=== PATIENT | female | born 1990 | race Two or more races ===

== ENCOUNTER 2022-08-22 17:02 | Emergency (ER) | payer SELFPAY ==
[2022-08-22 17:25] VITALS: BP 100/61; PULSE 148; RESP 20; TEMP 37.9; O2SAT 98; BMI 31.9
[2022-08-22 17:28] VITALS: TEMP 37.9
[2022-08-22 18:13] LABS: PCR FLU A Negative PCR FLU A (Negative); PCR FLU B Negative PCR FLU B (Negative); PCR RSV Negative PCR RSV (Negative)
--- NOTE | 2022-08-22 18:32 | ED_ITS ---
HPI - General Adult General Time Seen by Provider: 18:33 Date Seen: 08/22/22 Chief complaint: Fever Stated complaint: Fever,Pain in Bones,Breathing Trouble Time Seen by Provider: 08/22/22 17:56 Source: patient Mode of arrival: ambulatory Limitations: no limitations History of Present Illness HPI narrative: Patient is a 31-year-old female who has developed fever today body aches coryza low-grade fever. States she ?feels terrible. Has a dry cough. No neck stiffness, no chronic health issues that her significant. She denies shortness of breath, denies chest pain, does have body aches and chills however as mention, no dysuria frequency no marked sore throat. No skin rashes noted Related Data Home Medications Medication Instructions Recorded Confirmed No Known Home Medications 08/22/22 08/22/22 Allergies Allergy/AdvReac Type Severity Reaction Status Date / Time No Known Drug Allergies Allergy Verified 08/22/22 17:25 Review of Systems Status of ROS: Reports: 6 or more systems reviewed and unremarkable except as noted in History and below [facility] Medical History No significant past medical history Social History Smoking Status: Never smoker Do you use any of these nicotine containing products: None How often do you have a drink containing alcohol: never AUDIT-C Alcohol total score: 0 Non-prescribed substance use: denies use Exam Narrative: Exam Narrative: Objective: Patient has mild temperature Appears in mild distress, noncyanotic, alert orient x3 HEENT is unremarkable Neck is supple Chest is clear Abdomen benign soft Extremities are no edema neurologic nonfocal Const: Vital Signs, click to edit/add: Vital Signs - 24 hr 08/22/22 17:25 08/22/22 17:28 08/22/22 18:38 Temperature 100.3 F H 100.3 F H 100.0 F H Pulse Rate [Pulse Oximeter] 148 H Respiratory Rate 20 Blood Pressure [Ri ght Upper Arm] 100/61 Pulse Oximetry 98 Oxygen Delivery Me thod Room Air Course Vital Signs Vital signs: Initial Vital Signs Temperature 100.3 F H 08/22/22 17:25 Temperature Source Temporal Artery Scan 08/22/22 17:25 Pulse Rate 148 H 08/22/22 17:25 Respiratory Rate 20 08/22/22 17:25 Blood Pressure 100/61 08/22/22 17:25 Blood Pressure Mean 74 08/22/22 17:25 Pulse Oximetry 98 08/22/22 17:25 Oxygen Delivery Method 08/22/22 17:25 Vital Signs Temperature 100.3 F H 08/22/22 17:25 Pulse Rate 148 H 08/22/22 17:25 Respiratory Rate 20 08/22/22 17:25 Blood Pressure 100/61 08/22/22 17:25 Pulse Oximetry 98 08/22/22 17:25 Oxygen Delivery Method 08/22/22 17:25 Temperature 100.0 F H 08/22/22 18:38 Pulse Rate 148 H 08/22/22 17:25 Respiratory Rate 20 08/22/22 17:25 Blood Pressure 100/61 08/22/22 17:25 Pulse Oximetry 98 08/22/22 17:25 Oxygen Delivery Method 08/22/22 17:25 Medical Decision Making [facility] Narrative Medical decision making narrative: Patient has a acute viral syndrome presentation, likely influenza a or B. patient will get influenza/COVID/RSV testing done. Will give her ibuprofen and Tylenol, will await her testing results. Addendum: The patient is negative for triple swab, likely has an influenza like illness or influenza that just was a false negative test. Would treat with fluids Advil and Tylenol, time observation off work for couple of days recheck primary care in 48 hours as needed. Lab Data Labs: Lab Results 08/22/22 Range/Units 16:48 SARS-CoV-2 (PCR) Negative SARS-CoV-2 (Negative) Influenza Type A (PCR) Negative PCR FLU A (Negative) Influenza Type B (PCR) Negative PCR FLU B (Negative) RSV (PCR) Negative PCR RSV (Negative) Discharge Plan Discharge Clinical Impression: Acute viral syndrome Patient Disposition: Home, Self-Care Condition: Stable Additional Instructions: rest, light activity, fluids, Tylenol Advil as needed every 4-6 hours, update regular physician the next couple of days, return to ED sooner worsening concerns or not improving, recommend off work for the next couple of days Activity Level: Light activity Discharge Diet: Regular Prescriptions: No Action No Known Home Medications Stand Alone Forms: [employer] Info Instructions
[2022-08-22 18:35] LABS: SARS PCR* Negative SARS-CoV-2 (Negative)
[2022-08-22 18:38] VITALS: TEMP 37.8
[2022-08-22] MEDS: ACETAMINOPHEN 500 MG TABLET 1000 MG PO (18:38)
[2022-08-22] MEDS: IBUPROFEN 400 MG TABLET 800 MG PO (18:38)
== END 2022-08-22 19:08 | disposition home or self-care (01) ==
LOC: ED 18:49
PROVIDERS: Emergency Provider Family Medicine
DX: R50.9 Fever, unspecified (principal); R05.9 Cough, unspecified; B34.9 Viral infection, unspecified
CPT/HCPCS: 87502; 87634; 87635; 99283; A9270

== ENCOUNTER 2022-11-30 14:02 | Outpatient (CLI) | payer OTHER, SELFPAY ==
[2022-11-30 19:09] LABS: Chlamydia DNA Amplified* NOT DETECTED (No Detected); GC DNA Amplified* NOT DETECTED (No Detected)
== END 2022-11-30 14:03 | disposition home or self-care (01) ==
PROVIDERS: Visit Provider Physician Assistant
DX: N89.8 Other specified noninflammatory disorders of vagina (principal)
CPT/HCPCS: 0353U

== ENCOUNTER 2022-12-11 08:45 | Outpatient (CLI) | payer OTHER, SELFPAY | END 2022-12-11 08:46 | disposition home or self-care (01) | LOC: NFLDREF 23:51 | PROVIDERS: Visit Provider Physician Assistant | DX: N92.0 Excessive and frequent menstruation with regular cycle (principal); Z13.6 Encounter for screening for cardiovascular disorders; Z13.1 Encounter for screening for diabetes mellitus | CPT/HCPCS: 80061; 82947; 84443 ==

== ENCOUNTER 2022-12-11 08:49 | Outpatient (CLI) | payer OTHER, SELFPAY ==
--- NOTE | 2022-12-11 08:45 | CRLHL7_ITS ---
For Patients: As a result of the Century Cures Act, medical imaging exams and procedure reports are released immediately into your electronic medical record. You may view this report before your referring provider. If you have questions, please contact your health care provider. INDICATION: Menorrhagia, mild llq pain COMPARISON: none TECHNIQUE: 2D perez scale and color Doppler images were acquired of the pelvis using a transabdominal and transvaginal approach. FINDINGS: Sonographic images demonstrate a normal size and smooth outer contour of the uterus. Uterus measures 8.5 cm in length by 4.5 cm in AP diameter by 5.1 cm in transverse dimension. The myometrium has a normal uniform echotexture. The endometrial lining appears normal and measures 9 mm in composite thickness. The right ovary measures 3.0 x 1.3 x 1.7 cm in size and the left ovary measures 3.3 x 2.2 x 2.6 cm. The ovaries demonstrate normal arterial and venous blood flow on color Doppler analysis. There are no suspicious fluid collections within the cul-de-sac. IMPRESSION: Normal pelvic ultrasound. Dictated by Niranjan Marmolejo MD @ 12/11/2022 10:51:57 AM (Electronically Signed)
== END 2022-12-11 08:50 | disposition home or self-care (01) ==
LOC: US 08:50
PROVIDERS: Visit Provider Physician Assistant
DX: N92.0 Excessive and frequent menstruation with regular cycle (principal)
CPT/HCPCS: 76830; 76856; T1013

== ENCOUNTER 2023-12-03 12:01 | Emergency (ER) | payer OTHER, SELFPAY ==
[2023-12-03 12:05] VITALS: BP 115/77; PULSE 69; RESP 16; TEMP 36.4; O2SAT 99; BMI 28.0
--- NOTE | 2023-12-03 12:25 | ED.GENADULT ---
HPI - General Adult General Chief complaint: Chest Pain Stated complaint: Chest pain Time Seen by Provider: 12/03/23 12:02 History of Present Illness HPI narrative: Pt reports she has had L-sided chest and back pain for 2-3 weeks. Reports pain is worse when breathing, feels as if something is poking me. Reports some SOB, states unable to take a deep breath. Has taken Tylenol at home with no relief . Rates pain . 33-year-old woman presenting to the emergency department with concern of left sided chest/back pain over the last couple of weeks. Pain is also pleuritic. Feels like something is poking her. She is short of breath with this related discomfort. She can't take a deep breath. Tylenol has not been helpful. Doesn't sound as though has tried ibuprofen. No trauma noted. No history of coagulopathy and no leg pain or swelling. No dysuria or hematuria. 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 Related Data Home Medications Medication Instructions Recorded Confirmed No Known Home Medications 08/22/22 03/07/23 Allergies Allergy/AdvReac Type Severity Reaction Status Date / Time shellfish derived Allergy Intermediate Diarrhea Verified 03/07/23 14:25 iodine Allergy Unknown Unknown Verified 03/07/23 14:25 Review of Systems Status of ROS: Reports: 6 or more systems reviewed and unremarkable except as noted in History and below [facility] Medical History History of hepatitis ?Z86.19 - Personal history of other infectious and parasitic diseases (ICD-10) Migraines ?G43.909 - Migraine, unspecified, not intractable, without status migrainosus (ICD-10) History of miscarriage ?Z87.59 - Personal history of other complications of , childbirth and the puerperium (ICD-10) History of abnormal cervical Papanicolaou smear (2016) ?Z87.42 - Personal history of other diseases of the female genital tract (ICD-10) Gastroesophageal reflux disease ?K21.9 - Gastro-esophageal reflux disease without esophagitis (ICD-10) Surgical History History of D&C ?Z98.890 - Other specified postprocedural states (ICD-10) History of tubal ligation (02/19/20) ?Z98.51 - Tubal ligation status (ICD-10) History of vaginal delivery History of colposcopy (2015) ?Z98.890 - Other specified postprocedural states (ICD-10) Family History Maternal Grandmother Diabetes High cholesterol Paternal Grandmother Diabetes High cholesterol Social History Narrative: Homemaker, 4 children. Non-Yemeni speaking. . Nonsmoker. Smoking Status: Never smoker Do you use any of these nicotine containing products: None How often do you have a drink containing alcohol: never AUDIT-C Alcohol total score: 0 Non-prescribed substance use: denies use Little interest or pleasure in doing things: several days Feeling down, depressed, or hopeless: not at all service: No Exam Narrative: Exam Narrative: Appears to be uncomfortable. Skin is warm and dry. Extremities without edema. Negative Homen?s. Breathing as if uncomfortable. Hand at left mid chest. Abdomen sort and nontender. She is sore to palpation over the left side chest ribs/deep upper left chest musculature. No bruise, erythema, rash, otherwise. Lungs are clear. Lung sounds throughout and no supraclavicular crepitus. pain with deep inspiration. Heart in regular rate and rhythm. Const: Vital Signs, click to edit/add: Vital Signs - 24 hr 12/03/23 12:05 Temperature 97.5 F L Pulse Rate [Pulse Oximeter] 69 Respiratory Rate 16 Blood Pressure [Ri ght Upper Arm] 115/77 Pulse Oximetry 99 Oxygen Delivery Me thod Room Air Documenting provider has reviewed patient's vital signs: yes Course Vital Signs Vital signs: Initial Vital Signs Temperature 97.5 F L 12/03/23 12:05 Temperature Source Oral 12/03/23 12:05 Pulse Rate 69 12/03/23 12:05 Respiratory Rate 16 12/03/23 12:05 Blood Pressure 115/77 12/03/23 12:05 Blood Pressure Mean 89 12/03/23 12:05 Blood Pressure Position Sitting 12/03/23 12:05 Pulse Oximetry 99 12/03/23 12:05 Oxygen Delivery Method Room Air 12/03/23 12:05 Vital Signs Temperature 97.5 F L 12/03/23 12:05 Pulse Rate 69 12/03/23 12:05 Respiratory Rate 16 12/03/23 12:05 Blood Pressure 115/77 12/03/23 12:05 Pulse Oximetry 99 12/03/23 12:05 Oxygen Delivery Method Room Air 12/03/23 12:05 Temperature 97.5 F L 12/03/23 12:05 Pulse Rate 69 12/03/23 12:05 Respiratory Rate 16 12/03/23 12:05 Blood Pressure 115/77 12/03/23 12:05 Pulse Oximetry 99 12/03/23 12:05 Oxygen Delivery Method Room Air 12/03/23 12:05 Medications Administered Medications: Discontinued Medications Generic Name Dose Route Start Last Admin Trade Name Freq PRN Reason Stop Dose Admin Lidocaine 1 patch 12/03/23 14:04 12/03/23 14:18 Lidocaine 5% Patch TRANSDERMA 12/03/23 14:05 1 patch ONCE ONE Administration Protocol Medical Decision Making MDM Narrative Medical decision making narrative: Due to the degree of discomfort I would do some imaging. Would do basic chest x-ray pending results of labs. Is rather low with pre-test probability with regard to wells criteria. Pulmonary embolus otherwise would be in differential. Pneumonia's possibility though. Hasn't had infectious prodrome otherwise. No cough. possible occult rib fracture or other lesion. Ureteral stone? Less likely. Pain is reproducible in the ribs/side and at a minimum I would think costochondritis. Chest xray reviewed by me is without pneumothorax or bony abn/lesion or pneumonia. Procedure(s): XR chest 1V portable Accession Number(s): [id number] cc: Provider,Not a Local; Niranjan uLis M.D.~ Patient: ROSIE CHILDERS Facility:?[facility] Patient ID:?[id number] Site Patient ID:?[id number]. Site :?1990 Study:?XRay-Chest 1V-12/03/2023 12:58:02 PM Ordering Physician:?DR. LUIS Final Report: Indication: Chest pain Technique: Chest 1 view Comparison: None Findings/Impression: Cardiovascular and mediastinum: Heart size and vasculature are normal in caliber and appearance. Lungs and pleural space: Lungs are clear. No sign of infiltrate or mass. No sign of pleural effusion. No pneumothorax. Bones and soft tissues: Densities within the right upper quadrant, possible recent enteric contrast. labs are reassuring. we did discuss further imaging though I am reassured by reproducibility. mutually agreed to defer. lidocaine patch supplied. see patient discharge plan for further discussion Lab Data Lab results reviewed: Yes I reviewed the patient's lab results Labs: Lab Results 12/03/23 12/03/23 Range/Units 12:47 13:00 WBC 6.84 (4.50-11.00) K/uL RBC 4.17 (4.00-5.20) m/uL Hgb 12.5 (12.0-16.0) gm/dL Hct 36.2 (33.0-51.0) % MCV 87 (80-100) fL MCH 30 (26-34) pg MCHC 35 (32-36) gm/dL RDW Coeff of Craig 12.1 (11.5-15.5) % Plt Count 242 (140-440) K/uL Neut % (Auto) 58.2 (42.0-72.0) % Lymph % (Auto) 33.0 (20-44) % [place] % (Auto) 5.7 (0.0-11.0) % Eos % (Auto) 2.6 (0.0-7.0) % Baso % (Auto) 0.4 (0.0-3.0) % Neut # (Auto) 3.97 (1.7-7.0) K/uL Lymph # (Auto) 2.26 (0.90-2.90) K/uL [place] # (Auto) 0.40 (0.00-0.90) K/UL Eos # (Auto) 0.18 (0.00-0.50) K/uL Baso # (Auto) 0.03 (0.00-0.30) K/uL Abs Immat Gran (auto) 0.01 (0.00-0.30) K/uL Imm/Tot Granulo (auto) 0.1 % D-Dimer Quant (PE/DVT) < 0.27 (0.00-0.50) ug/ml Sodium 137 (135-149) mmol/L Potassium 4.0 (3.6-5.1) mmol/L Chloride 106 (96-114) mmol/L Carbon Dioxide 29 (20-32) mmol/L Anion Gap 2 L (7-15) mEq/L BUN 10 (5-24) mg/dL Creatinine 0.5 (0.5-1.5) mg/dL Estimated Creat Clear 131.15 Estimated GFR 126 ml/min Glucose 93 (60-115) mg/dL Calcium 8.6 (8.4-10.6) mg/dL C-Reactive Protein < 0.5 L (0.5-1.0) mg/dL POC Troponin I 0.00 L (0.01-0.04) ng/ml ECG Data Attestation: I personally reviewed and interpreted this ECG as follows: (Normal sinus rhythm at a rate of 64. No ischemic changes or strain pattern) Discharge Plan Discharge Clinical Impression: Chest wall pain Patient Disposition: Home, Self-Care Condition: Stable Additional Instructions: I see no evidence of heart attack or blood clot or a pneumonia or cancer per your concern. Stay well-hydrated. See handout for stretches that might be helpful for you particularly considering your work. Can do these daily or couple times a day going forward. I think it might be a good idea to avoid working above your shoulders over the next week. You might try placing lidocaine patches if this one seems to be helpful. They are available for purchase [id number]. There are topical ibuprofen like creams available as well. Regardless I would recommend taking 600 mg of ibuprofen 3 times daily over the next 5 days or alternatively you might take 375-500 mg of naproxen 2 times daily over the next 5 days as well. Hopefully this can settle down the inflammation that appears to be present in your chest. No veo evidencia de ataque card?aco o co?gulo de abraham o neumon?a o c?ncer seg?n bowles preocupaci?n. Mantente trisha hidratado. Consulte el folleto para conocer los estiramientos que podr?an ser ?tiles para usted, especialmente teniendo en cuenta bowles trabajo. Puede hacer esto diariamente o un par de veces al d?a en el futuro. Creo que podr?a ser jacqueline buena idea evitar trabajar por encima de los hombros kathy la pr?xima semana. Puede intentar colocar parches de lidoca?na si ruperto parece ser ?til. Est?n disponibles para bowles compra sin receta. Tambi?n hay cremas t?picas similares al ibuprofeno. De todos modos, recomendar?a dana 600 mg de ibuprofeno 3 veces al d?a kathy los pr?ximos 5 d?as o, alternativamente, tambi?n podr?a dana 375 a 500 mg de naproxeno 2 veces al d?a kathy los pr?ximos 5 d?as. Con suerte, esto puede calmar la inflamaci?n que parece estar presente en el pecho. Prescriptions: No Action No Known Home Medications Follow Up/Referrals: Provider,Not a Local [Primary Care Provider] - Stand Alone Forms: [employer] Info Instructions
--- NOTE | 2023-12-03 12:46 | XR_ITS ---
Patient: ROSIE CHILDERS Facility:?[facility] Patient ID:?[id number] Site Patient ID:?[id number]. Site :?1990 Study:?XRay-Chest 1V-12/03/2023 12:58:02 PM Ordering Physician:?DR. OBREGON Final Report: Indication: Chest pain Technique: Chest 1 view Comparison: None Findings/Impression: Cardiovascular and mediastinum: Heart size and vasculature are normal in caliber and appearance. Lungs and pleural space: Lungs are clear. No sign of infiltrate or mass. No sign of pleural effusion. No pneumothorax. Bones and soft tissues: Densities within the right upper quadrant, possible recent enteric contrast. Dictated by Felipe Clement MD @ 12/03/2023 1:29:32 PM Signed by:?Felipe Clement MD @12/03/2023 1:29:32 PM (Electronic Signature)
[2023-12-03 13:11] LABS: Basophils Absolute Auto 0.03 K/uL (0.00-0.30); Basophils Percent Auto 0.4 % (0.0-3.0); Eosinophils Absolute Auto 0.18 K/uL (0.00-0.50); Eosinophils Percent Auto 2.6 % (0.0-7.0); Hematocrit 36.2 % (33.0-51.0); Hemoglobin* 12.5 gm/dL (12.0-16.0); Immature Granulocytes Abs Auto 0.01 K/uL (0.00-0.30); Immature Granulocytes Pct Auto 0.1 %; Lymphocytes Absolute Auto 2.26 K/uL (0.90-2.90); Mean Corpuscular HGB Conc 35 gm/dL (32-36); Mean Corpuscular Hemoglobin 30 pg (26-34); Mean Corpuscular Volume 87 fL (80-100); Monocytes Percent Auto 5.7 % (0.0-11.0); Neutrophils Absolute Auto 3.97 K/uL (1.7-7.0); Neutrophils Percent Auto 58.2 % (42.0-72.0); Platelet Count* 242 K/uL (140-440); RDW Coefficient of Variation % 12.1 % (11.5-15.5); Red Blood Count 4.17 m/uL (4.00-5.20); White Blood Count* 6.84 K/uL (4.50-11.00)
[2023-12-03 13:19] LABS: Chloride* 106 mmol/L (96-114)
[2023-12-03 13:20] LABS: Slide Review Reflex No; Sodium* 137 mmol/L (135-149)
[2023-12-03 13:22] LABS: Creatinine* 0.5 mg/dL (0.5-1.5); Est. Creatinine Clearance* 131.15; Estimated Glomerular Filt Rate 126 ml/min
[2023-12-03 13:23] LABS: Anion Gap 2 mEq/L (7-15); Blood Urea Nitrogen* 10 mg/dL (5-24); Carbon Dioxide* 29 mmol/L (20-32); Glucose* 93 mg/dL (60-115)
[2023-12-03 13:24] LABS: Calcium* 8.6 mg/dL (8.4-10.6)
[2023-12-03 13:28] LABS: D Dimer Quantitative* < 0.27 ug/ml (0.00-0.50)
[2023-12-03 13:34] LABS: C Reactive Protein* < 0.5 mg/dL (0.5-1.0)
[2023-12-03] MEDS: LIDOCAINE 5% PATCH 1 PATCH TRANSDERMA (14:18)
== END 2023-12-03 14:21 | disposition home or self-care (01) ==
PROVIDERS: Emergency Provider Family Medicine
DX: R07.89 Other chest pain (principal)
CPT/HCPCS: 36415; 71045; 80048; 84484; 85025; 85379; 86140; 99284; A9270

== ENCOUNTER 2025-03-25 14:57 | Emergency (ER) | payer OTHER, SELFPAY ==
--- OUTSIDE RECORDS SUMMARY | 2025-03-25 15:00 | XMS_ITS | Clinical Summary ---
Author Organization [employer] [facility] Address [address] [place] [id number] Care Team Providers Care Medical Support Specialist Name Role Phone Pcp, No Primary Care Provider Unavailabl e Allergies No known active allergies Medications Breast Pump - PurchaseIndication s:Nursing difficulty (HC) For home use. Gestation age at delivery: 38 weeks. 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 Length of need: 1 year 1 unit 0 6 Active ethinyl estradiol-norelges trom (ORTHO EVRA) 150-35 mcg/24 hr patchIndications:E ncounter for initial prescription of transdermal patch hormonal contraceptive device Apply 1 Patch on dry, clean, hairless skin once weekly. 12 Patch 3 6 Active Active Problems Problem Noted Date Diagnosed Date Cervical high risk HPV (human papillomavirus) te st positive 01/17/2016 Overview (01/31/2016): 01/17/2016 - Colposcopy Advised Normal in multigravida 03/31/2015 Overview (10/31/2015): Blood Type A+ It's a girl! Herpes diagnosed this , started on acyclovir at 36 weeks. ASCUS with positive high risk HPV 08/21/2013 ASCUS with positive high risk HPV 08/09/2013 Overview (09/04/2013): repeat pap ASCUS with positive high risk HPV Overview (04/28/2015): colposcopy recommended Resolved Problems Problem Noted Date Diagnosed Date Resolved Date IUD (intrauterine device) in place 01/03/2015 01/17/2015 Overview (01/03/2015): paraguard Supervision of other normal 07/28/2013 07/06/2014 Overview (02/12/2014): It's a girl! Close spacing Tdap 12/14/2013 HEMOGLOBIN (g/dL) Date Value 02/09/2014 12.8 GBS Negative Supervision of other normal 07/22/2012 04/24/2013 Overview (12/15/2012): It's a girl! TDaP given 12/15/2012 Immunizations Immunization Administration Dates Next Due Influenza, IIV3 (Age >=3 years) 07/03/2013,08/12 Influenza, IIV4 06/15/2016,06/21/2015 Tdap 2015,12/14/2013,12/15/2012 Family History Medical History Relation Name Comments Good Health Father Good Health Mother Relation Name Status Comments Father Mother Social History Tobacco Use Types Packs/Day Years Used Date Smoking Tobacco: Never Smokeless Tobacco: Never Tobacco Cessation:Counseling Given: Yes Alcohol Use Standard Drinks/Week Comments No 0 (1 standard drink = 0.6 oz pur e alcohol) Comments No Sex and Gender Information Value Date Recorded Sex Assigned at Not on file 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 Please review and update details. 014 Term 39w 0d 2.92 kg (6 lb 7 oz) F Vag None N Living Complications:None Last Filed Vital Signs Vital Sign Reading Time Taken Comments Blood Pressure 103/70 07/09/2016 11:32 AM CDT Pulse 88 07/09/2016 11:32 AM CDT Temperature 36.4 C (97.5 F) 02/10/2016 10:14 AM CDT Respiratory Rate 20 05/12/2015 2:31 PM CDT Oxygen Saturation 99% 07/09/2016 11:32 AM CDT Inhaled Oxygen Concentration - - Weight 70.6 kg (155 lb 9.6 oz) 07/09/2016 11:32 AM CDT Height 158.8 cm (5' 2.52) 02/27/2016 11:16 AM C DT Body Mass Index 27.99 02/27/2016 11:16 AM CDT Plan of Treatment Health Maintenance Due Date Last Done Comments Hepatitis C screening for age 18-79 2007 Hepatitis B series for 19+ (1 of 3 - 19+ 3-dose series) 2008 Depression screening for age 12+ 01/16/2017 01/17/2016, 11/07/2015 BMI (ht and wt on same day) for age 18+ 02/26/2017 02/27/2016, 02/10/2016, 01/17/2016, Additional history exists COVID-19 vaccine series (2023- season) 2024 Influenza Vaccine (#1) 2025 6, 06/21/2015, 07/03/2013, Additional history exists Tetanus booster 2025 2015, 03/2014, 12/15/2012 Pap test for age 21-65 03/07/2026 3, 11/30/2022, 12/04/2018, Additional history exists HIV for age 15-65 Completed 03/31/2015, , 07/22/2012, Additional history exists Pneumococcal series for age 6-49 Aged Out No longer eligible based on patient's age to complete this topic Procedures Procedure Name Priority Date/Time Associated Diagnosis Comments RELIGIOUS ASSISTANT THIN PREP PAP SCREEN IMAGED Routine 03/07/2023 12:00 PM CDT ANTI HIV 1/2 Routine 03/31/2015 6:55 PM CDT Supervision of other normal , first trimester from Last 3 Months or Most Recently Relevant to Health Maintenance Results * RELIGIOUS ASSISTANT THIN PREP PAP SCREEN IMAGED (03/07/2023 12:00 PM CDT) Case Report Gynecologic Cytology Report Case: [id number] Authorizing Provider: Julia Vora PA-C Collected: 03/07/2023 1200 Order[address] Location: [facility] Received: 03/11/2023 1237 First Screen: Felipe Hughes Specimen: RELIGIOUS ASSISTANT ThinPrep Vial Screening, Cervical 04/09/2023 2:35 PM CDT [facility] INTERPRETATION/ RESULT NEGATIVE FOR INTRAEPITHELIAL LESION OR MALIGNANCY (NIL) (none) 04/09/2023 2:35 PM CDT [facility] at 1435 CDT SPECIMEN ADEQUACY Satisfactory for evaluation Endocervical component present 04/09/2023 2:35 PM CDT [facility] HPV REQUEST HPV not requested 2022 2:35 PM CDT [facility] Date of LMP 04/09/2023 2:35 PM CDT [facility] Comment:unk Last Pap Date 11/30/2022 04/09/2023 2:35 PM CDT [facility] Last Pap Result UNS 2:35 PM CDT [facility] Abnormal Pap or [place] Bx in last 5 years No 04/09/2023 2:35 PM CDT [facility] Menstrual Status Regular Periods 04/09/2023 2:35 PM CDT [facility] [place] Bx Done Today No 04/09/2023 2:35 PM CDT [facility] Additional Information 04/09/2023 2:35 PM CDT [facility] Comment: Interpreted at [facility] - [address], [place], [place] [address] Automated Review Successful 04/09/2023 2:35 PM CDT [facility] Comment:Specimen processed s uccessfully by automated patient relations director device, ThinPrep [employer] System, [employer] Note The pap test is a screening technique, not a diagnostic procedure. It is used primarily to screen for squamous cancers and precursor lesions. Published studies have shown that it is subject to both false negative and false positive results. The pap test should not be used as the sole means to diagnose or exclude pre-malignant and malignant lesions. 04/09/2023 2:35 PM CDT [facility] Other (Cervical) 03/07/2023 12:00 PM CDT 03/11/2023 12:37 PM CDT December Vielka NYE PATHOLOGY/CYTOLOGY Final R esult [facility] [address] [place] [address], [place] * ANTI HIV 1/2 (03/31/2015 6:55 PM CDT) HIV-1/HIV-2 ANTIBODY Non-Reacti ve Non-Reacti ve 04/01/2015 2:04 PM CDT [facility] Blood specimen (specimen) BLOOD SPECIMEN / Unknown Venipuncture / Unknown 03/31/2015 6:55 PM CDT 03/31/2015 6:55 PM CDT Narrative [facility] - 04/01/2015 2:04 PM CDT HIV-1 p24 and HIV-1/HIV-2 Ab not detected Altagracia Regalado NP SEND OUTS F inal Result [facility] [address] [place] [address], [place] from Last 3 Months or Most Recently Relevant to Health Maintenance Care Teams Medical Support Specialist Relationship Specialty Start Date End Date Pcp, No . PCP - General 11/21/16
[2025-03-25 15:11] VITALS: BP 104/70; PULSE 113; RESP 24; TEMP 36.9; O2SAT 96; BMI 28.0
--- NOTE | 2025-03-25 15:19 | CRLHL7_ITS ---
For Patients: As a result of the Century Cures Act, medical imaging exams and procedure reports are released immediately into your electronic medical record. You may view this report before your referring provider. If you have questions, please contact your health care provider. INDICATION: Cough, chest pain COMPARISON: 12/03/2023 TECHNIQUE: PA and lateral 2 view chest. FINDINGS: Lung volumes are good. Asymmetric left lower lobe and lingular peribronchial thickening and patchy peribronchial opacities. There is not a large dense consolidation. No pulmonary edema. No pleural effusion. No pneumothorax. No pneumomediastinum. Normal cardiomediastinal silhouette. Bones: Normal for age. There is some irregular dystrophic mineralization or calcification in the right upper quadrant. In total measures about 6.5 x 6 x 7.5 cm. Anatomic location is not entirely specific to either the gallbladder kidney or adrenal gland. Persistent since November indicates this is not ingested material. IMPRESSION: 1. Left mid to lower lung infectious airways disease without large consolidation. 2. Irregular mineralization in the right upper quadrant is similar to the previous exam. Consider further imaging evaluation for better localization. Further radiographs are probably not going to be helpful. Ultrasound or CT with IV contrast could be considered. Dictated by Kelsi Francisco MD @ 03/25/2025 3:50:03 PM (Electronically Signed)
[2025-03-25 16:20] LABS: PCR FLU A Negative PCR FLU A (Negative); PCR FLU B Negative PCR FLU B (Negative); PCR RSV Negative PCR RSV (Negative); SARS PCR* Negative SARS-CoV-2 (Negative)
--- NOTE | 2025-03-25 16:45 | ED_ITS ---
HPI - General Adult General Date Seen: 03/25/25 Chief complaint: Cough Stated complaint: cough, sore throat Time Seen by Provider: 03/25/25 15:00 Source: patient Mode of arrival: ambulatory Limitations: no limitations History of Present Illness HPI narrative: Patient is a 34-year-old female presenting to the emergency department for a cough, chest pain, sore throat. She states for the past week she has been having this cough and sore throat. She states she is coughing so much her chest and back now her to. Feels like sometimes it is hard to breathe. Left side is worse than the right she states. Describes it as her left lung hurting. Has been having intermittent fevers also. Some nausea but currently is not nauseated. Gets some dizziness and shortness of breath with positional changes. States her 's seems to be starting to get symptoms to but known was sick before her. Still does have the sore throat denies any difficulty swallowing or breathing. No other concerns noted Related Data Previous Rx's ?Medication ?Instructions ?Recorded azithromycin 250 mg tablet See Rx Instructions PO .COM PLEX #6 03/25/25 (Zithromax) tabs Allergies Allergy/AdvReac Type Severity Reaction Status Date / Time shellfish derived Allergy Intermediate Diarrhea Verified 03/25/25 17:53 iodine Allergy Unknown Unknown Verified 03/25/25 17:53 Review of Systems Status of ROS: Reports: 10 or more systems reviewed and unremarkable except as noted in History and below [facility] Medical History History of hepatitis ?Z86.19 - Personal history of other infectious and parasitic diseases (ICD- 10) Migraines ?G43.909 - Migraine, unspecified, not intractable, without status migrainosus (ICD-10) History of miscarriage ?Z87.59 - Personal history of other complications of , childbirth and the puerperium (ICD-10) History of abnormal cervical Papanicolaou smear (2016) ?Z87.42 - Personal history of other diseases of the female genital tract (ICD-10) Gastroesophageal reflux disease ?K21.9 - Gastro-esophageal reflux disease without esophagitis (ICD-10) Surgical History History of D&C ?Z98.890 - Other specified postprocedural states (ICD-10) History of tubal ligation (02/19/20) ?Z98.51 - Tubal ligation status (ICD-10) History of vaginal delivery History of colposcopy (2015) ?Z98.890 - Other specified postprocedural states (ICD-10) Family History Maternal Grandmother Diabetes High cholesterol Paternal Grandmother Diabetes High cholesterol Social History Narrative: Homemaker, 4 children. Non-Romansh speaking. . Nonsmoker. Smoking Status: Never smoker Do you use any of these nicotine containing products: None How often do you have a drink containing alcohol: never AUDIT-C Alcohol total score: 0 Non-prescribed substance use: denies use service: No Exam Narrative: Exam Narrative: Const: Well-nourished, Well-developed, in mild distress Eyes: PERRL, no conjunctival injection, and symmetrical lids HENT: Atraumatic external nose and ears. Moist mucous membranes. Mildly erythematous posterior oropharynx, uvula midline, no tonsillar exudate or swelling. No swelling noted underneath the tongue. Neck: Symmetric, trachea midline, No thyromegaly. CVS: Tachycardic, No murmurs or gallops. Peripheral pulses 2+ and equal in all extremities RESP: Unlabored respiratory effort. Clear to auscultation bilaterally. GI: Nontender/Nondistended, No rebound or guarding. MSK:Extremities w/o deformity, Normal Active ROM, chest tenderness that reproduces her pain exactly Skin: Warm, Dry. No rashes or lesions. Neuro: Normal Muscle tone, No focal neurological deficits. Psych: Awake, Alert, & Oriented x3. Appropriate mood and affect. Const: Vital Signs, click to edit/add: Vital Signs - 24 hr 03/25/25 15:11 03/25/25 17:03 03/25/25 18:24 Temperature 98.5 F 97.8 F 99.2 F Pulse Rate [Pulse Oximeter] 113 H 92 103 H Respiratory Rate 24 29 H 23 Blood Pressure [Ri ght Upper Arm] 104/70 108/74 90/68 Pulse Oximetry 96 94 93 Oxygen Delivery Me thod Room Air Room Air Room Air 03/25/25 19:07 Temperature 99.3 F Pulse Rate [Pulse Oximeter] Respiratory Rate Blood Pressure [Ri ght Upper Arm] Pulse Oximetry Oxygen Delivery Me thod Course Vital Signs Vital signs: Initial Vital Signs Temperature 98.5 F 03/25/25 15:11 Temperature Source Temporal Artery Scan 03/25/25 15:11 Pulse Rate 113 H 03/25/25 15:11 Respiratory Rate 24 03/25/25 15:11 Blood Pressure 104/70 03/25/25 15:11 Blood Pressure Mean 81 03/25/25 15:11 Blood Pressure Position Sitting 03/25/25 15:11 Pulse Oximetry 96 03/25/25 15:11 Oxygen Delivery Method Room Air 03/25/25 15:11 Vital Signs Temperature 98.5 F 03/25/25 15:11 Pulse Rate 113 H 03/25/25 15:11 Respiratory Rate 24 03/25/25 15:11 Blood Pressure 104/70 03/25/25 15:11 Pulse Oximetry 96 03/25/25 15:11 Oxygen Delivery Method Room Air 03/25/25 15:11 Temperature 99.3 F 03/25/25 19:07 Pulse Rate 103 H 03/25/25 18:24 Respiratory Rate 23 03/25/25 18:24 Blood Pressure 90/68 03/25/25 18:24 Pulse Oximetry 93 03/25/25 18:24 Oxygen Delivery Method Room Air 03/25/25 18:24 Medications Administered Medications: Discontinued Medications Generic Name Dose Route Start Last Admin Trade Name Freq PRN Reason Stop Dose Admin Acetaminophen 1,000 mg 03/25/25 18:50 03/25/25 19:07 Acetaminophen 500 Mg Tablet PO 03/25/25 18:51 1,000 mg ONCE ONE Administration Azithromycin 500 mg 03/25/25 17:47 03/25/25 18:21 Azithromycin 250 Mg Tablet PO 03/25/25 17:48 500 mg ONCE ONE Administration Medical Decision Making [facility] Narrative Medical decision making narrative: Patient is a 34-year-old female presenting to emergency department for cough and fever. Chest x-ray ordered. She is having some chest pains or 12 lead EKG was also done. Her chest pain is reproduced with palpation is seems unlikely to be cardiac in nature. I do not believe this is myocarditis. Her shortness of breath is likely related to the likely viral and/or bacterial infection. I do not believe further lab work is necessary. Patient is not showing signs of peritonsillar abscess, Jimmy angina, retropharyngeal abscess,Lemierre disease or any other concerning oral pharynx or deep neck space abscesses. Imaging is not necessary. Viral swabs are negative. EKG shows no acute concerning abnormalities. X-ray is consistent with a left lung pneumonia. This is consistent with her description of her symptoms. Is also an irregular mineralization in her right upper quadrant similar to previous exam. Considering she has not primary care and I am unsure she reviewed the set up primary care any time soon I do think it is best to do a CT scan here so she does not get lost to follow-up. Since we do a CT scan will also check some basic labs to make sure everything is all right. This includes troponin, BMP, CBC, strep swab. Lab work all returned showing no concerning abnormalities. Has very mild elevated LFTs. CT scan returned showing the previously mentioned pneumonia along with a large any intermittent mass that is possibly a teratoma. I did speak to our on-call general surgeon states this is too complicated for them recommends referral. I spoke to the patient and she does states she will be seen [facility] now on the 30 of March. This seems reasonable and she will be discharged. Did give her dose of antibiotics while she was waiting here. Lab Data Labs: Lab Results 03/25/25 03/25/25 03/25/25 Range/Units 15:15 17:09 17:40 WBC 8.58 (4.50-11.00) K/uL RBC 4.35 (4.00-5.20) m/uL Hgb 13.2 (12.0-16.0) gm/dL Hct 37.7 (33.0-51.0) % MCV 87 (80-100) fL MCH 30 (26-34) pg MCHC 35 (32-36) gm/dL RDW Coeff of Craig 12.0 (11.5-15.5) % Plt Count 249 (140-440) K/uL Neut % (Auto) 73.6 H (42.0-72.0) % Lymph % (Auto) 18.5 L (20-44) % [place] % (Auto) 7.5 (0.0-11.0) % Eos % (Auto) 0.1 (0.0-7.0) % Baso % (Auto) 0.2 (0.0-3.0) % Neut # (Auto) 6.30 (1.7-7.0) K/uL Lymph # (Auto) 1.60 (0.90-2.90) K/uL [place] # (Auto) 0.60 (0.00-0.90) K/UL Eos # (Auto) 0.01 (0.00-0.50) K/uL Baso # (Auto) 0.02 (0.00-0.30) K/uL Abs Immat Gran (auto) 0.01 (0.00-0.30) K/uL Imm/Tot Granulo (auto) 0.1 % Sodium 137 (135-149) mmol/L Potassium 3.4 L (3.6-5.1) mmol/L Chloride 99 (96-114) mmol/L Carbon Dioxide 27 (20-32) mmol/L Anion Gap 11 (7-15) mEq/L BUN 9 (5-24) mg/dL Creatinine 0.8 (0.5-1.5) mg/dL Estimated Creat Clear 81.19 Estimated GFR 98 ml/min Glucose 102 (60-115) mg/dL Calcium 8.8 (8.4-10.6) mg/dL Total Bilirubin 0.6 (0.1-1.5) mg/dL Direct Bilirubin 0.1 (0.0-0.5) mg/dL AST 45 H (12-35) U/L ALT 66 H (4-35) U/L Alkaline Phosphatase 59 (40-150) U/L Total Protein 8.5 H (6.0-8.3) g/dL Albumin 4.4 (3.3-5.0) g/dL SARS-CoV-2 (PCR) Negative SARS-CoV-2 (Negative) Influenza Type A (PCR) Negative PCR FLU A (Negative) Influenza Type B (PCR) Negative PCR FLU B (Negative) RSV (PCR) Negative PCR RSV (Negative) Group A Strep DNA NOT DETECTED (Not Detectd) POC Troponin I 0.00 L (0.01-0.04) ng/ml Imaging Data Chest x-ray: Attestation: I have reviewed the pertinent imaging results. Radiologist's impression: 1. Left mid to lower lung infectious airways disease without large consolidation. 2. Irregular mineralization in the right upper quadrant is similar to the previous exam. Consider further imaging evaluation for better localization. Further radiographs are probably not going to be helpful. Ultrasound or CT with IV contrast could be considered. Dictated by Kelsi Francisco MD @ 03/25/2025 3:50:[address] scan abdomen and pelvis: Attestation: I have reviewed the pertinent imaging results. Radiologist's impression: Large indeterminate 10.7 x 7.5 x 10.7 centimeter mixed density mass arising from the right retroperitoneum/adrenal gland. No aggressive features. Differential is broad and includes retroperitoneal teratoma versus less likely adrenal myelolipoma. Consider further evaluation with nonemergent multiphasic MRI. Patient will likely benefit from nonemergent surgical evaluation as well. Multifocal tree-in-bud nodularity seen in the lingula and bilateral lower lobes, likely multifocal pneumonia in the appropriate clinical setting Otherwise, no acute intra-abdominal/pelvic abnormality, including appendicitis. Please note that all CT scans at this facility use dose modulation, iterative reconstruction, and/or weight-based dosing when appropriate to reduce radiation dose to as low as reasonably achievable. Dictated by Arden Quezada MD @ 03/25/2025 6:49:12 PM ECG Data Attestation: I personally reviewed and interpreted this ECG as follows: Prior ECG tracings: available for review Interpretation: Sinus tachycardia with a rate of 106 beats per minute, normal intervals, normal axis, no ST or T-wave abnormalities. Appears similar previous EKG on file Discharge Plan Discharge Clinical Impression: Pneumonia Qualifiers: Pneumonia type: due to unspecified organism Laterality: left Lung location: lower lobe of lung Qualified Code(s): J18.9 - Pneumonia, unspecified organism Abdominal mass Qualifiers: Abdominal location: right upper quadrant Qualified Code(s): R19.01 - Right upper quadrant abdominal swelling, mass and lump Patient Disposition: Home, Self-Care Condition: Stable Instructions: Pneumonia (ED) Additional Instructions: It does appear like you have pneumonia. I will send antibiotic to your pharmacy at [facility]. Take 1 pill every day for the next 4 days starting on 03/26. Of note there was a mineralization seen any right upper quadrant of her abdomen. It does appear similar to previous imaging from 12/03/2023. Make sure to follow-up with [facility] as you have scheduled. You will likely need a nonemergent multiphasic MRI and referral to Surgical Oncology. Prescriptions: New azithromycin [Zithromax] 250 mg tablet See Rx Instructions .ROUTE .COMPLEX Qty: 6 0RF Rx Instructions: For 250 mg dose pack: take 500 mg today (day 1), then 250 mg for 4 days (days 2-5) Follow Up/Referrals: Provider,Not a Local [Primary Care Provider, Family Practice] Stand Alone Forms: [facility] Info Instructions
[2025-03-25 17:03] VITALS: BP 108/74; PULSE 92; RESP 29; TEMP 36.6; O2SAT 94
--- NOTE | 2025-03-25 17:08 | CRLHL7_ITS ---
For Patients: As a result of the 21st Century Cures Act, medical imaging exams and procedure reports are released immediately into your electronic medical record. You may view this report before your referring provider. If you have questions, please contact your health care provider. INDICATION: Right lower quadrant mineralization. TECHNIQUE: CT abdomen and pelvis acquired with 78 cc Isovue 370 IV contrast. COMPARISON: None. FINDINGS: Lower chest: Multifocal tree-in-bud nodularity seen in the lingula and bilateral lower lobes, likely infectious/inflammatory in etiology. Liver: Unremarkable. Normal in size and attenuation. No suspicious masses. Gallbladder and bile ducts: Unremarkable. No stones or inflammation. No biliary dilatation. Pancreas: Unremarkable. No mass or inflammation. Spleen: Unremarkable. Normal in size. No masses. Adrenal glands: Large indeterminate 10.7 x 7.5 x 10.7 centimeter mixed density mass, including calcific, fatty, and cystic structures, arising from the right adrenal gland/retroperitoneum (series 2/image 52, series 5/image 96). This is causing mass effect on the adjacent kidney and IVC/renal veins. Kidneys: Unremarkable. No suspicious masses, stones, or hydronephrosis. GI tract: Unremarkable. Normal in caliber. No sign of mass or inflammation. Normal appendix. Vasculature: Abdominal aorta is normal in caliber. Mesenteric arteries are patent. Lymph nodes: No lymphadenopathy. Peritoneum/Abdominal Wall: Unremarkable. No sign of mass or infiltration. No free air or significant free fluid. Pelvis: Unremarkable. Bones: Unremarkable for age. IMPRESSION: Large indeterminate 10.7 x 7.5 x 10.7 centimeter mixed density mass arising from the right retroperitoneum/adrenal gland. No aggressive features. Differential is broad and includes retroperitoneal teratoma versus less likely adrenal myelolipoma. Consider further evaluation with nonemergent multiphasic MRI. Patient will likely benefit from nonemergent surgical evaluation as well. Multifocal tree-in-bud nodularity seen in the lingula and bilateral lower lobes, likely multifocal pneumonia in the appropriate clinical setting Otherwise, no acute intra-abdominal/pelvic abnormality, including appendicitis. Please note that all CT scans at this facility use dose modulation, iterative reconstruction, and/or weight-based dosing when appropriate to reduce radiation dose to as low as reasonably achievable. Dictated by Arden Quezada MD @ 03/25/2025 6:49:12 PM (Electronically Signed)
[2025-03-25 17:48] LABS: Hematocrit* 37.7 % (33.0-51.0); Hemoglobin* 13.2 gm/dL (12.0-16.0); Immature Granulocytes Abs Auto 0.01 K/uL (0.00-0.30); Immature Granulocytes Pct Auto 0.1 %; Mean Corpuscular HGB Conc 35 gm/dL (32-36); Mean Corpuscular Hemoglobin 30 pg (26-34); Mean Corpuscular Volume 87 fL (80-100); RDW Coefficient of Variation % 12.0 % (11.5-15.5); Red Blood Count* 4.35 m/uL (4.00-5.20); White Blood Count* 8.58 K/uL (4.50-11.00)
[2025-03-25 17:54] LABS: Lymphocytes Absolute Auto 1.60 K/uL (0.90-2.90); Slide Review Reflex No
[2025-03-25 18:02] LABS: Troponin, Point-of-Care* 0.00 ng/ml (0.01-0.04)
[2025-03-25 18:03] LABS: Albumin* 4.4 g/dL (3.3-5.0); Chloride* 99 mmol/L (96-114); Potassium* 3.4 mmol/L (3.6-5.1); Sodium* 137 mmol/L (135-149)
[2025-03-25 18:05] LABS: Alanine Aminotransferase* 66 U/L (4-35); Anion Gap 11 mEq/L (7-15); Aspartate Amino Transferase* 45 U/L (12-35); Blood Urea Nitrogen* 9 mg/dL (5-24); Carbon Dioxide* 27 mmol/L (20-32); Creatinine* 0.8 mg/dL (0.5-1.5); Est. Creatinine Clearance* 81.19; Estimated Glomerular Filt Rate 98 ml/min; Total Protein* 8.5 g/dL (6.0-8.3)
[2025-03-25 18:06] LABS: Alkaline Phosphatase* 59 U/L (40-150); Bilirubin Direct* 0.1 mg/dL (0.0-0.5); Bilirubin Total* 0.6 mg/dL (0.1-1.5); Calcium* 8.8 mg/dL (8.4-10.6); Glucose* 102 mg/dL (60-115)
[2025-03-25 18:15] LABS: Strep A DNA Probe* NOT DETECTED (Not Detectd)
[2025-03-25] MEDS: AZITHROMYCIN 250 MG TABLET 500 MG PO (18:21)
[2025-03-25 18:24] VITALS: BP 90/68; PULSE 103; RESP 23; TEMP 37.3; O2SAT 93
[2025-03-25 19:07] VITALS: TEMP 37.4
[2025-03-25] MEDS: ACETAMINOPHEN 500 MG TABLET 1000 MG PO (19:07)
[2025-03-25 19:57] VITALS: PULSE 96; RESP 20; TEMP 36.9
== END 2025-03-25 20:00 | disposition home or self-care (01) ==
PROVIDERS: Family Medicine; Emergency Provider Student in an Organized Health Care Education/Training Program
DX: J18.9 Pneumonia, unspecified organism (principal); R19.01 Right upper quadrant abdominal swelling, mass and lump
CPT/HCPCS: 36415; 71046; 74177; 80048; 80076; 84484; 85025; 87637; 87651; 93005; 99284; 99285; A9270; Q9967

== ENCOUNTER 2025-04-23 13:57 | Emergency (ER) | payer OTHER, SELFPAY ==
--- OUTSIDE RECORDS SUMMARY | 2025-04-23 13:59 | XMS_ITS | Clinical Summary ---
Author Organization [employer] [facility] Address [facility] [place] [address] Care Team Providers Care Upper And Bottom Lacer Hand Name Role Phone Pcp, No Primary Care [...] (12/15/2012): It's a girl! TDaP given 12/15/2012 Encounters Date Type Department Care Team Description 04/01/2025 Transcribe Orders [facility] [phone] Abbie Youssef MD 04/01/2025 Transcribe Orders [facility] [phone] Abbie Youssef MD 03/30/2025 Transcribe Orders [facility] [phone] Abbie Youssef MD from Last 3 Months Immunizations Immunization Administration Dates Next Due Influenza, [...] on file Legal Sex Female 8:27 AM [employer] Gender Identity Not on file Sexual Orientation [...] 01/17/2016, Additional history exists COVID-19 vaccine series ( season) 2024 Influenza Vaccine (#1) 2025 6, 06/21/2015, 07/03/2013, Additional history exists Tetanus booster 2025 2015, 04/0 03/2014, 12/15/2012 Pap test for age 21-65 03/07/2026 3, 11/30/2022, 12/04/2018, Additional history exists HIV for age 15-65 Completed 03/31/2015, , 07/22/2012, Additional history exists Pneumococcal series for age 6-49 Aged Out No longer eligible based on patient's age to complete this topic Procedures Procedure Name Priority Date/Time Associated Diagnosis Comments 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 THIN PREP PAP SCREEN IMAGED Routine 03/07/2023 12:00 PM CDT ANTI HIV 1/2 Routine 03/31/2015 6:55 PM CDT Supervision of other normal , first trimester from Last 3 Months or Most Recently Relevant to Health Maintenance Results * 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 THIN PREP PAP SCREEN IMAGED (03/07/2023 12:00 PM CDT) Case Report Gynecologic Cytology Report Case: [id number] Authorizing Provider: Julia Vora PA-C Collected: 03/07/2023 1200 Ordering Location: [facility] Received: 03/11/2023 1237 First Screen: Felipe Hughes Specimen: 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 ThinPrep Vial Screening, Cervical 04/09/2023 2:35 PM CDT [facility] INTERPRETATION/ RESULT NEGATIVE FOR INTRAEPITHELIAL LESION OR MALIGNANCY (NIL) (none) 04/09/2023 2:35 PM CDT [facility] at 1435 CDT SPECIMEN ADEQUACY Satisfactory for evaluation Endocervical component present 04/09/2023 2:35 PM CDT [facility] HPV REQUEST HPV not requested 2022 2:35 PM CDT [facility] Date of LMP 04/09/2023 2:35 PM CDT [facility] Comment:unk Last Pap Date 11/30/2022 04/09/2023 2:35 PM CDT [facility] Last Pap Result UNS 2:35 PM CDT [facility] Abnormal Pap or [place] Bx in last 5 years No 04/09/2023 2:35 PM CDT [facility] Menstrual Status Regular Periods 04/09/2023 2:35 PM CDT [facility] [place] Bx Done Today No 04/09/2023 2:35 PM [facility]T [facility] Additional Information 04/09/2023 2:35 PM CDT [facility] Comment: Interpreted at [facility] - [address] [place] [address], [place] [address] Automated Review Successful 04/09/2023 2:35 PM CDT [facility] Comment:Specimen processed s uccessfully by automated molding machine setter device, [employer] Imaging System, [employer] Note The pap test is a [...] and malignant lesions. 04/09/2023 2:35 PM CDT [facility] Other (Cervical) 03/07/2023 12:00 PM CDT 03/11/2023 12:37 PM CDT us Julia Vora PA-C PATHOLOGY/CYTOLOGY Final R esult [facility] [address] [place] [address], [place] * ANTI HIV 1/2 (03/31/2015 6:55 PM CDT) HIV-1/HIV-2 ANTIBODY Non-Reacti ve Non-Reacti ve 04/01/2015 2:04 PM CDT [facility] Blood specimen (specimen) BLOOD SPECIMEN / Unknown Venipuncture / Unknown 03/31/2015 6:55 PM CDT 03/31/2015 6:55 PM CDT Narrative [facility] - 04/01/2015 2:04 PM CDT HIV-1 p24 and HIV-1/HIV-2 Ab not detected us Altagracia Regalado SALES SERVICE COORDINATOR [employer]END OUTS F inal Result [facility] [address] [place] [address], [place] from Last 3 Months or Most Recently Relevant to Health Maintenance Care Teams Upper And Bottom Lacer Hand Relationship Specialty Start Date End Date Pcp, No . PCP - General 11/21/16
[2025-04-23 14:28] VITALS: BP 149/88; PULSE 104; RESP 20; TEMP 36.9; O2SAT 97
--- NOTE | 2025-04-23 16:15 | ED_ITS ---
HPI - General Adult General Chief complaint: Anxiety Stated complaint: possible panic attack Time Seen by Provider: 04/23/25 14:07 Source: patient Mode of arrival: ambulatory Limitations: no limitations History of Present Illness HPI narrative: 34-year-old female presenting today with anxiety. Patient states that she was at work in her usual state of health when all of a sudden she started feeling like she could not breathe, for entire body felt numb and tingly and she just could not catch her breath. She denies chest pain. She felt lightheaded with edema have any vertiginous symptoms. She denies nausea or vomiting. She denies an episode like this ever occurring before. Patient does state that she was recently diagnosed with an abdominal mass and has been really thinking about that a lot lately, has not been able to get a biopsy yet-it is scheduled. Patient is quite concerned about the outcome. Does not have a history of anxiety. She is not sure how long the episode lasted but she is feeling somewhat better now. Related Data Home Medications ?Medication ?Instructions ?Recorded ?Confirmed No Known Home Medications 04/23/2504/09 Allergies Allergy/AdvReac Type Severity Reaction Status Date / Time shellfish derived Allergy Intermediate Diarrhea Verified 04/23/25 14:33 iodine Allergy Unknown Unknown Verified 04/23/25 14:33 Review of Systems Status of ROS: Reports: 10 or more systems reviewed and unremarkable except as noted in History and below [facility] Medical History History of hepatitis ?Z86.19 - Personal history of other infectious and parasitic diseases (ICD- 10) Migraines ?G43.909 - Migraine, unspecified, not intractable, without status migrainosus (ICD-10) History of miscarriage ?Z87.59 - Personal history of other complications of , childbirth and the puerperium (ICD-10) History of abnormal cervical Papanicolaou smear (2016) ?Z87.42 - Personal history of other diseases of the female genital tract (ICD-10) Gastroesophageal reflux disease ?K21.9 - Gastro-esophageal reflux disease without esophagitis (ICD-10) Surgical History History of D&C ?Z98.890 - Other specified postprocedural states (ICD-10) History of tubal ligation (02/19/20) ?Z98.51 - Tubal ligation status (ICD-10) History of vaginal delivery History of colposcopy (2015) ?Z98.890 - Other specified postprocedural states (ICD-10) Family History Maternal Grandmother Diabetes High cholesterol Paternal Grandmother Diabetes High cholesterol Social History Narrative: Homemaker, 4 children. Non-Kiswahili speaking. . Nonsmoker. Smoking Status: Never smoker Do you use any of these nicotine containing products: None Second hand tobacco smoke exposure: No How often do you have a drink containing alcohol: never AUDIT-C Alcohol total score: 0 Non-prescribed substance use: denies use service: No Exam Narrative: Exam Narrative: Well-nourished well-developed patient, tearful. Alert and oriented x3. Answers questions appropriately. Affect appropriate. Thoughts are goal oriented. No tangential or magical thinking noted. Patient speaks in full sentences without needing to catch her breath. HEENT: Normocephalic atraumatic. Pupils are equally round reactive to light. Extraocular muscles are intact. Conjunctivae are moist without any icterus noted. Moist mucous membranes. Posterior pharynx is normal. Neck is soft. Cardiovascular: Heart is regular rate and rhythm S1 and S2 are present without any murmurs. Lungs: Clear to auscultation bilaterally no wheezes rhonchi or rales are appreciated. Patient takes deep breaths without any discomfort. Abdomen: Soft and nontender nondistended with normal bowel sounds. Extremities: Bilateral lower extremities are without edema. Skin: Well perfused without any obvious rashes. Const: Vital Signs, click to edit/add: Vital Signs - 24 hr 04/23/25 14:28 Temperature 98.4 F Pulse Rate [Pulse Oximeter] 104 H Respiratory Rate 20 Blood Pressure [Ri ght Upper Arm] 149/88 H Pulse Oximetry 97 Oxygen Delivery Me thod Room Air Course Course ED Course: EKG, read by me, shows normal sinus rhythm with a pulse of 68. Normal QRS, QTC and OK intervals. Patient complaining of a headache, was given 1000 mg of Tylenol which did help. Blood work was unremarkable. Vital Signs Vital signs: Initial Vital Signs Temperature 98.4 F 04/23/25 14:28 Temperature Source Temporal Artery Scan 04/23/25 14:28 Pulse Rate 104 H 04/23/25 14:28 Respiratory Rate 20 04/23/25 14:28 Blood Pressure 149/88 H 04/23/25 14:28 Blood Pressure Mean 108 H 04/23/25 14:28 Blood Pressure Position Sitting 04/23/25 14:28 Pulse Oximetry 97 04/23/25 14:28 Oxygen Delivery Method Room Air 04/23/25 14:28 Vital Signs Temperature 98.4 F 04/23/25 14:28 Pulse Rate 104 H 04/23/25 14:28 Respiratory Rate 20 04/23/25 14:28 Blood Pressure 149/88 H 04/23/25 14:28 Pulse Oximetry 97 04/23/25 14:28 Oxygen Delivery Method Room Air 04/23/25 14:28 Temperature 98.4 F 04/23/25 14:28 Pulse Rate 104 H 04/23/25 14:28 Respiratory Rate 20 04/23/25 14:28 Blood Pressure 149/88 H 04/23/25 14:28 Pulse Oximetry 97 04/23/25 14:28 Oxygen Delivery Method Room Air 04/23/25 14:28 Medications Administered Medications: Discontinued Medications Generic Name Dose Route Start Last Admin Trade Name Yury PRN Reason Stop Dose Admin Acetaminophen 1,000 mg 04/23/25 16:07 04/23/25 16:28 Acetaminophen 500 Mg Tablet PO 04/23/25 16:08 1,000 mg ONCE ONE Administration Medical Decision Making [facility] Narrative Medical decision making narrative: 34-year-old female with what sounds like a very classic panic attack. We discussed follow-up with primary care for further management. Lab Data Lab results reviewed: Yes I reviewed the patient's lab results Labs: Lab Results 04/23/25 04/23/25 Range/Units 16:08 16:15 WBC 8.89 (4.50-11.00) K/uL RBC 4.09 (4.00-5.20) m/uL Hgb 12.4 (12.0-16.0) gm/dL Hct 35.5 (33.0-51.0) % MCV 87 (80-100) fL MCH 30 (26-34) pg MCHC 35 (32-36) gm/dL RDW Coeff of Craig 12.8 (11.5-15.5) % Plt Count 218 (140-440) K/uL Neut % (Auto) 77.8 H (42.0-72.0) % Lymph % (Auto) 16.3 L (20-44) % [place] % (Auto) 4.6 (0.0-11.0) % Eos % (Auto) 0.9 (0.0-7.0) % Baso % (Auto) 0.3 (0.0-3.0) % Neut # (Auto) 6.90 (1.7-7.0) K/uL Lymph # (Auto) 1.40 (0.90-2.90) K/uL [place] # (Auto) 0.40 (0.00-0.90) K/UL Eos # (Auto) 0.08 (0.00-0.50) K/uL Baso # (Auto) 0.03 (0.00-0.30) K/uL Abs Immat Gran (auto) 0.01 (0.00-0.30) K/uL Imm/Tot Granulo (auto) 0.1 % Sodium 137 (135-149) mmol/L Potassium 3.7 (3.6-5.1) mmol/L Chloride 103 (96-114) mmol/L Carbon Dioxide 27 (20-32) mmol/L Anion Gap 7 (7-15) mEq/L BUN 10 (5-24) mg/dL Creatinine 0.7 (0.5-1.5) mg/dL Estimated GFR 116 ml/min Glucose 103 (60-115) mg/dL Lactate 0.5 (0.5-1.9) mmol/L Calcium 8.9 (8.4-10.6) mg/dL Total Bilirubin 0.5 (0.1-1.5) mg/dL Direct Bilirubin 0.1 (0.0-0.5) mg/dL AST 26 (12-35) U/L ALT 19 (4-35) U/L Alkaline Phosphatase 52 (40-150) U/L Troponin I < 0.01 (0.01-0.04) ng/mL Total Protein 7.9 (6.0-8.3) g/dL Albumin 4.4 (3.3-5.0) g/dL Urine HCG, Qual Negative (Negative) Discharge Plan Discharge Clinical Impression: Acute anxiety Patient Disposition: Home, Self-Care Condition: Stable Additional Instructions: Your workup today was unremarkable. I do recommend you follow-up with your primary care provider to discuss what happened today and to discuss next steps. Prescriptions: No Action No Known Home Medications Follow Up/Referrals: Provider,Not a Local [Primary Care Provider, Family Practice] Stand Alone Forms: [facility] Info Instructions
[2025-04-23 16:23] LABS: Lactate* 0.5 mmol/L (0.5-1.9)
[2025-04-23] MEDS: ACETAMINOPHEN 500 MG TABLET 1000 MG PO (16:28)
[2025-04-23 16:33] LABS: Ur HCG Qualitative* Negative (Negative)
[2025-04-23 16:33] LABS: Hematocrit 35.5 % (33.0-51.0); Hemoglobin* 12.4 gm/dL (12.0-16.0); Immature Granulocytes Abs Auto 0.01 K/uL (0.00-0.30); Immature Granulocytes Pct Auto 0.1 %; Lymphocytes Absolute Auto 1.40 K/uL (0.90-2.90); Mean Corpuscular HGB Conc 35 gm/dL (32-36); Mean Corpuscular Hemoglobin 30 pg (26-34); Mean Corpuscular Volume 87 fL (80-100); RDW Coefficient of Variation % 12.8 % (11.5-15.5); Red Blood Count 4.09 m/uL (4.00-5.20); Slide Review Reflex No; White Blood Count* 8.89 K/uL (4.50-11.00)
[2025-04-23 16:37] LABS: Albumin* 4.4 g/dL (3.3-5.0); Chloride* 103 mmol/L (96-114); Potassium* 3.7 mmol/L (3.6-5.1); Sodium* 137 mmol/L (135-149)
[2025-04-23 16:39] LABS: Blood Urea Nitrogen* 10 mg/dL (5-24); Creatinine* 0.7 mg/dL (0.5-1.5); Estimated Glomerular Filt Rate 116 ml/min
[2025-04-23 16:41] LABS: Alanine Aminotransferase* 19 U/L (4-35); Anion Gap 7 mEq/L (7-15); Aspartate Amino Transferase* 26 U/L (12-35); Calcium* 8.9 mg/dL (8.4-10.6); Carbon Dioxide* 27 mmol/L (20-32); Glucose* 103 mg/dL (60-115); Total Protein* 7.9 g/dL (6.0-8.3)
[2025-04-23 16:46] LABS: Alkaline Phosphatase* 52 U/L (40-150); Bilirubin Total* 0.5 mg/dL (0.1-1.5)
[2025-04-23 16:53] LABS: Bilirubin Direct* 0.1 mg/dL (0.0-0.5)
== END 2025-04-23 17:21 | disposition home or self-care (01) ==
PROVIDERS: Emergency Provider Family Medicine
DX: F41.9 Anxiety disorder, unspecified (principal)
CPT/HCPCS: 36415; 80048; 80076; 81025; 83605; 84484; 85025; 93005; 99284; A9270

== ENCOUNTER 2025-08-23 14:25 | Outpatient (CLI) | payer OTHER, SELFPAY ==
[2025-08-23 20:00] LABS: Bacterial Vaginosis* Negative (Negative); Candida glab/krus NOT DETECTED (No Detected)
== END 2025-08-23 14:26 | disposition home or self-care (01) ==
LOC: NFLDREF 14:25
PROVIDERS: PCP Family Medicine; Visit Provider Obstetrics & Gynecology
DX: N89.8 Other specified noninflammatory disorders of vagina (principal); R21 Rash and other nonspecific skin eruption
CPT/HCPCS: 81513; 87481; 87661